=== PATIENT | female | born 1985 | race Caucasian/White ===

== ENCOUNTER 2025-07-10 00:47 | Emergency (ER) | payer BC, SELFPAY ==
[2025-07-10 00:51] VITALS: BP 148/94
[2025-07-10 01:09] VITALS: BMI 31.0
[2025-07-10 01:22] LABS: Hematocrit 35.8 % (37.0-47.0); Hemoglobin 12.2 g/dL (12.0-16.0); Mean Corp Hgb Conc. 34.1 g/dL (33.0-37.0); Mean Corpuscular Volume 92.0 fL (81.0-99.0); Nucleated Red Blood Cells % 0 %; Platelet Count 256 10^3/uL (130-400); Red Cell Dist. Width 12.4 % (11.5-14.5)
[2025-07-10] MEDS: MAALOX 40 PO (01:27)
[2025-07-10] MEDS: PROTONIX IV 40 MG IV (01:29)
[2025-07-10] MEDS: NSS 500 IV (01:30)
[2025-07-10] MEDS: TORADOL 15 MG IV (01:30)
[2025-07-10 01:44] LABS: HCG, Serum Qualitative Screen Negative
[2025-07-10 01:51] LABS: ALT (SGPT) 19 U/L (0-35); AST (SGOT) 19 U/L (14-36); Albumin 4.7 g/dl (3.5-5.0); Alkaline Phosphatase 39 U/L (38-126); Blood Urea Nitrogen 17 mg/dl (7-17); Calcium 9.1 mg/dl (8.4-10.2); Carbon Dioxide 24 mmol/L (22-30); Chloride 106 mmol/L (98-107); Estimated Creatinine Clearance 97 ml/min; Glucose 109 mg/dl (70-99); Lipase 332 U/L (23-300); Potassium 3.7 mmol/L (3.5-5.1); Sodium 137 mmol/L (135-145); Total Protein 7.4 g/dl (6.3-8.2); eGFR > 60.00
--- NOTE | 2025-07-10 02:28 | ED.GENMED ---
History of Present Illness
General
Chief Complaint: Abdominal Pain
Source: patient
Exam Limitations: none
Time Seen by Provider: 07/10/25 01:17
Nursing documentation reviewed up to this point in time: agreed with
History of Present Illness
History of Present Illness:
Patient with history of previous cholecystectomy, presents to ED secondary to sudden onset of abdominal pain, shortly after having lunch consisting of grilled chicken this afternoon. Abdominal pain described as sharp, nonradiating, without any
alleviating or exacerbating factors. Denies fever or chills. Denies vomiting or diarrhea. Denies trauma. Denies recent illness. Denies recent change in diet. Denies previous history of similar symptoms. Patient does report being under heavy
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
Past History
Past History
ED Past Medical History: Other (Status post cholecystectomy)
ED Past Surgical History: Cholecystectomy
Social History
Tobacco: Smoker
Alcohol: Occasional
Family History
Family History: Hypertension and Other
Review of Systems
Review of Systems
Allergies reviewed?: Yes
Constitutional: Reports no symptoms; Denies fever
Respiratory: Reports no symptoms
Cardiac: Reports no symptoms
ABD/GI: Reports abdominal pain; Denies vomiting or diarrhea
Musculoskeletal: Reports no symptoms
Skin: Reports no symptoms
Neurological: Reports no symptoms
Phy Exam
Physical Exam
Physical Exam:
Physical Exam
General: mild painful distress, not acutely ill. afebrile
Head: nc/at. eomi
Neck: supple. no meningeal signs.
Heart: s1/s2 regular rate and rhythm
Lungs: no acute respiratory distress. clear bilaterally
Abdomen: normal bowel sounds. mild epigastric tenderness to palpation
Neuro: alert and oriented x 3. no focal neurological deficits
Skin: no rash
Psychiatric: well kept. interactive and cooperative
Extremities: no edema. no calf tenderness.
Course
Orders/Labs/Results
Orders:
Orders
07/10/25 00:56
Test Result ONCE
07/10/25 01:15
Complete Blood Count/With Diff Urgent
Comprehensive Metabolic Panel Urgent
HCG, Serum Qualitative Screen Urgent
Comment: Notify provider if positive test present
Lipase Urgent
07/10/25 01:24
0.9% Sodium Chloride 500 ml [Nss] 500 ml IV BOLUS
Ketorolac [Toradol] 15 mg IV NOW STA
Mag Hydrox/Al Hydrox/Simeth [Maalox] 30 ml Phenobarb/Hyoscy/Atropine/Scop [] 10 ml PO NOW
Pantoprazole [Protonix IV] 40 mg IV NOW STA
US Abdomen Complete/Upper Urgent
Comment:
Reason For Exam: epigastric pain
07/10/25 01:26
Mag Hydrox/Al Hydrox/Simeth [Maalox] 30 ml .ROUTE .STK-MED ONE
Phenobarb/Hyoscy/Atropine/Scop [] 10 ml .ROUTE .STK-MED ONE
Abnormal Lab Results
07/10/25
01:15
RBC 3.89 L 10^6/uL
(4.20-5.40)
Hct 35.8 L %
(37.0-47.0)
MCH 31.4 H pg
(27.0-31.0)
Absolute Monos (auto) 0.7 H 10^3/uL
(0.1-0.6)
Glucose 109 H mg/dl
(70-99)
Lipase 332 H U/L
(23-300)
07/10/25 01:15
07/10/25 01:15
Vital Signs
Initial and Last Documented VS:
Initial Vital Signs
Temp Pulse Resp BP Pulse Ox
97.5 F 80 18 148/94 100
07/10/25 00:51 07/10/25 00:51 07/10/25 00:51 07/10/25 00:51 07/10/25 00:51
Last Documented Vital Signs
Temp Pulse Resp BP Pulse Ox
97.5 F 57 18 129/71 99
07/10/25 00:51 07/10/25 02:39 07/10/25 02:39 07/10/25 02:39 07/10/25 02:39
MDM/Problems Addressed
MDM/Problems Addressed:
Pt with an unremarkable workup in ED, including blood work and abdominal US. Otherwise, patient remains afebrile, hemodynamically stable and nontoxic appearing, along with improvement in symptoms after treatment. Differential diagnosis including
gastritis/ulcer/esophagitis/biliary disease, and less likely other etiology discussed with patient. She feels comfortable going home at this time with diet modification/PPI/carafate along with pcp/GI f/u as outpatient. Return precautions provided,
i.e. fever/worsening pain/vomiting.
*Pulse Oximetry
SaO2: 100
Oxygen Mode of Delivery: Room air
Patient hypoxic: no
*Critical Care Note
Total Time (30-74mins, 75-104mins- exclusive of procedures): Not Applicable
ED Attending Note
-
Portions of this chart may have been created with voice recognition software.� Occasional wrong word or��sound alike� substitutions may have occurred due to the inherent limitations of voice recognition software.
Discharge Plan
Departure
Patient Disposition: Home (Routine Discharge)
Date of Disposition: 07/10/25
Time of Disposition: 02:56
Patient with high blood pressure during this ER visit?: Yes
Condition: Fair
Discharge Problem:
Abdominal pain
Instructions: Sharkey diet, Abdominal Pain
Prescriptions:
New
sucralfate 100 mg/mL suspension
10 ml PO QID 7 Days Qty: 280 0RF
Referrals:
Natalia Moreno DO [Family Provider, Family Practice]
Activity Restrictions/Additional Instructions:
As discussed, please follow-up with your primary care physician and/or referred GI physician for further evaluation and treatment. Please consider return to ED with worsening symptoms, i.e. fever/worsening pain/vomiting. Your prescription has been
sent electronically to [facility] pharmacy in [place]
Interventions
Interventions:
*Risk Screen - Suicide Last Done: 07/10/25 00:51
*General Assessment Last Done: 07/10/25 01:20
*Neglect/Abuse Screening Last Done: 07/10/25 00:51
*ED COVID-19 Vaccine History Last Done: 07/10/25 00:51
*ED Influenza Vaccine History Last Done: 07/10/25 00:51
[facility] Fall Risk Assessment Tool Last Done: 07/10/25 01:20
*Nursing Disposition Last Done: 07/10/25 02:59
WN-[id number]-Towlpcqqdb Assessment Last Done: 07/10/25 01:19
Discharge Date and Time
Discharge Date/Time: 07/10/25 03:04
Print Language: ETHIOPIAN
[2025-07-10 02:39] VITALS: BP 129/71
== END 2025-07-10 03:04 | disposition home or self-care (01) ==
LOC: EMR 00:47
PROVIDERS: Emergency Medicine; EMERGENCY PHYSICIAN Emergency Medicine; FAMILY PHYSICIAN Family Medicine
DX: R10.13 Epigastric pain (principal); F17.200 Nicotine dependence, unspecified, uncomplicated; Z90.49 Acquired absence of other specified parts of digestive tract
CPT/HCPCS: 99284; 96374; 96375; 96361; 76700; 80053; 83690; 84703; 85025

== ENCOUNTER → 2025-07-20 15:32 | Outpatient (REF) | payer BC, SELFPAY | LOC: RAD 15:32 | PROVIDERS: ATTENDING PHYSICIAN Physician Assistant Medical | DX: Z09 Encounter for follow-up examination after completed treatment for conditions other than malignant neoplasm (principal); R10.13 Epigastric pain | CPT/HCPCS: 74177; Q9967 ==